=== PATIENT | female | born 1995 | race Two or more races ===

== ENCOUNTER 2022-01-18 11:24 | Emergency (ER) | payer OTHER ==
[2022-01-18 11:31] VITALS: BP 144/90
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
[2022-01-18] MEDS ORDERED: IBUPROFEN 600 MG TABLET PO STA (12:54)
== END 2022-01-18 14:25 | disposition home or self-care (01) ==
LOC: ED 11:24
DX: S40.022A Contusion of left upper arm, initial encounter (principal); S40.021A Contusion of right upper arm, initial encounter; S80.11XA Contusion of right lower leg, initial encounter; Y04.8XXA Assault by other bodily force, initial encounter
CPT/HCPCS: 99282; A9270